=== PATIENT | male | born 1940 | race Caucasian/White ===

== ENCOUNTER 2020-06-22 14:55 | Outpatient (CLI) | payer MEDICARE, BC ==
[2020-06-23 04:13] LABS: SARS-CoV-2 PCR by NAA Not Detected (NotDetected)
== END 2020-06-22 14:56 | disposition home or self-care (01) ==
LOC: CSHLAB 14:55
PROVIDERS: ATTEND Internal Medicine Gastroenterology
DX: Z20.822 Contact with and (suspected) exposure to COVID-19 (principal); K63.5 Polyp of colon
CPT/HCPCS: 87635; U0003; U0005

== ENCOUNTER 2020-06-27 06:01 | Day surgery (SDC) | payer MEDICARE, BC ==
[2020-06-23 15:07] VITALS: BMI 28.1
[2020-06-27] MEDS ORDERED: Lidocaine 1% MPF 2 ML VIAL ONE (06:47)
[2020-06-27] MEDS ORDERED: PROPOFOL 40 ML ONE (07:35)
== END 2020-06-27 09:10 | disposition home or self-care (01) ==
LOC: CSHSDC 06:01
PROVIDERS: ATTEND Internal Medicine Gastroenterology
DX: Z12.11 Encounter for screening for malignant neoplasm of colon (principal); D12.0 Benign neoplasm of cecum; D12.3 Benign neoplasm of transverse colon; K57.30 Diverticulosis of large intestine without perforation or abscess without bleeding; K64.9 Unspecified hemorrhoids; E78.5 Hyperlipidemia, unspecified
CPT/HCPCS: 88305; 93005; 93010; J2704